=== PATIENT | female | born 1960 | race Caucasian/White ===

== ENCOUNTER → 2016-07-03 | Outpatient (CLI) | payer BC ==
[~2016-07-03] MED LIST: ACET-1256 PO; CALC600T9 PO; CINN500T PO; ESTR1.252 PO; FEXO1TAB49 PO; HYDR-5688 PO; MULT-506 PO; NAPR1TAB9 PO; OMEG10007 PO; PSEU30TA20 PO; TURM500T PO
== END | disposition home or self-care (01) ==
LOC: C.PAPS 08:34
PROVIDERS: ATTEND Obstetrics & Gynecology
DX: Z01.419 Encounter for gynecological examination (general) (routine) without abnormal findings (principal)

== ENCOUNTER → 2016-12-09 | Outpatient (CLI) | payer BC | END | disposition home or self-care (01) | LOC: C.LAB1850 09:12 | PROVIDERS: ATTEND Internal Medicine | DX: Z00.00 Encounter for general adult medical examination without abnormal findings (principal); Z11.59 Encounter for screening for other viral diseases ==

== ENCOUNTER → 2016-12-12 | Outpatient (CLI) | payer BC ==
--- NOTE | 2016-12-12 12:39 | DIAGNOSTIC IMAGING REPORT ---
LEFT SHOULDER ULTRASOUND CLINICAL HISTORY: Left shoulder lipoma. COMPARISON STUDY: MRI of the left shoulder February 08, 2013. FINDINGS: Note is made of a 6 x 4.3 x 1 cm isoechoic slightly lobulated lesion within the subcutaneous tissues of the left shoulder. This reflects the palpable abnormality and favors a lipoma. IMPRESSION: 6 x 4.3 x 1 cm subcutaneous lesion of the left shoulder which is isoechoic to adjacent fat. This suggests a lipoma. Electronically signed by: Kang Marques M.D. 12/12/2016 12:37 PM Dictated Date/Time: 12/12/2016 12:36 PM
== END | disposition home or self-care (01) ==
LOC: C.ULTR 11:52
PROVIDERS: ATTEND Internal Medicine
DX: D17.9 Benign lipomatous neoplasm, unspecified (principal)

== ENCOUNTER → 2017-01-27 | Outpatient (CLI) | payer BC ==
[2017-01-27 19:06] LABS: BASO % 0.7 %; BASO ABS # 0.03 K/uL (0-0.2); COMPLETE YES; EOS % 2.2 %; HEMATOCRIT 39.3 % (37-47); IG% 0.2 %; LYMPH % 34.6 %; LYMPH ABS # 1.59 K/uL (1.2-3.4); MEAN CELL VOLUME 89.3 fL (80-100); MEAN CORPUSCULAR HEMOGLOBIN 30.7 pg (25-34); MEAN CORPUSCULAR HGB CONC 34.4 g/dl (32-36); MEAN PLATELET VOLUME 11.6 fL (7.4-10.4); NEUT % 55.3 %; PLATELET COUNT 178 K/uL (130-400); WHITE BLOOD COUNT 4.59 K/uL (4.8-10.8)
[2017-01-27 19:35] LABS: BLOOD UREA NITROGEN 11 mg/dl (7-18); BUN/CREATININE RATIO 14.2 (10-20); CALCIUM 9.1 mg/dl (8.5-10.1); CARBON DIOXIDE 31 mmol/L (21-32); CHLORIDE 104 mmol/L (98-107); CREATININE 0.76 mg/dl (0.60-1.20); GLUCOSE 73 mg/dl (70-99); POTASSIUM 3.6 mmol/L (3.5-5.1); SODIUM 138 mmol/L (136-145)
== END | disposition home or self-care (01) ==
LOC: C.CPL 17:46
PROVIDERS: ATTEND Surgery
DX: D17.9 Benign lipomatous neoplasm, unspecified (principal)

== ENCOUNTER → 2017-02-06 | Day surgery (SDC) | payer BC ==
[2017-01-20 11:55] VITALS: Ht 174 cm; Wt 73.2 kg
[~2017-02-06] VITALS: Ht 174 cm; Wt 73.2 kg
[~2017-02-06] MED LIST changes: +ATROPINE SULFATE 0.1 MG/ML 5ML SYR IV PRN; +CEFAZOLIN 2000 MG/60 ML D5W IV SCH; +DEXAMETHASONE SOD INJ 4 MG/ML VIAL IV PRN; +DEXAMETHASONE SOD INJ 4 MG/ML VIAL ONE; +EpHEDrine SULFATE INJ 50 MG/ML AMP IV PRN; +FENTANYL CITRATE INJ 50 MCG/1 ML 2 ML VIAL IV PRN; +FENTANYL CITRATE INJ 50 MCG/1 ML 2 ML VIAL ONE; +HYDROCODONE/ACETAMOPHEN 5/325MG TAB PO PRN; +KETOROLAC TROMETHAMINE 30 MG/ML VIAL IV. PRN; +LABETALOL HCL IV 5 MG/ML 20ML IV PRN; +LIDOCAINE HCL 1% 20 ML VIAL ONE; +LIDOCAINE HCL 2% 2 ML VIAL (20MG/ML) ONE; +METOCLOPRAMIDE HCL INJ 5 MG/ML 2 ML VIAL IV PRN; +MIDAZOLAM HCL 1 MG/ML 2ML VIAL ONE; +MoRPHine SULFATE 10 MG/ML CARP/VIAL IV PRN; +ONDANSETRON INJ 2 MG/ML 2 ML VIAL IV PRN; +ONDANSETRON INJ 2 MG/ML 2 ML VIAL ONE; +PHENYLEPHRINE 100MCG/ML 5ML SYR IV PRN; +PROPOFOL IV EMULSION 10 MG/ML 20 ML VIAL IV ONE; +SODIUM CHLORIDE 0.9% 1000ML 1,000 ML IV SCH
[2017-02-06] MEDS: LACTATED RINGER'S 1000ML 1,000 ML IV SCH ×2 (07:37→09:48)
--- NOTE | 2017-02-06 08:38 | History & Physical Bridge - [place] ---
H&P Re-Evaluation Bridge Note: I have examined the patient, reviewed the History & Physical and in the interval since the performance of the History & Physical I have noted the following changes of clinical significance: No changes noted
[2017-02-06] MEDS: BUPIVACAINE 0.5 % 5 MG/1 ML MPF 30ML VIAL ONE ×2 (09:00→09:14)
--- NOTE | 2017-02-06 09:25 | [facility] Operative Report ---
Operative Report Operative Date Feb 06, 2017. Pre-Operative Diagnosis Left Shoulder Mass Post-Operative Diagnosis Same Procedure(s) Performed Left Shoulder Excision Of Mass Surgeon Dr. Yvonne Mcadams MD Pharmacy Intern Surgeon(s) Franklin Garcia PA-C Estimated Blood Loss 5 CC Findings 7x6 cm lipoma Specimens A. Left Shoulder Lipoma Anesthesia gen/ LMA Complication(s) None Disposition Recovery Room / PACU I attest to the content of the Intraoperative Record and any orders documented therein. Any exceptions are noted below.
--- NOTE | 2017-02-06 09:28 | Discharge Instructions-SurgCtr ---
Discharge Instructions Date of Service Feb 06, 2017. Visit Reason for Visit: Left Shoulder Mass Discharge Discharge Diagnosis / Problem: lipoma Discharge Goals Goal(s): Decrease discomfort, Improve function, Improve disease control Medications Stopped Medications Name(s): Fish oil stopped a week ago. Stopped taking Aleve and Naprosen a week ago too. Activity Recommendations Activity Limitations: as noted below Lifting Limitations: no more than 10 pounds (Lt arm) Exercise/Sports Limitations: until after follow-up appointment May Resume Sexual Activity: when tolerated Shower/Bathe: tomorrow Driving or Machine Use: resume 3 days after discharge SPECIAL CARE INSTRUCTIONS: * Cover incisions and change daily for comfort/drainage. * May use ibuprofen for pain as tolerated. * Expect some swelling and bruising. Call your doctor if: * Temperature above 101 degrees * Pain not relieved by pain medicine ordered * There is increased drainage or redness from any incision * You have any unanswered questions or concerns [phone]. FOLLOW UP VISIT: If not already scheduled, please call the office for a follow-up visit. for next week- wound check OFFICE PHONE NUMBER: Dr. Mcadams Office Anesthesia . Post Anesthesia Instructions: If you have had General Anesthesia or IV Sedation: * Do not drive today. * Resume driving when surgeon permits. * Do not make important decisions or sign legal documents today. * Call surgeon for: 1. Temperature elevations greater than 101 degrees F. 2. Uncontrollable pain. 3. Excessive bleeding. 4. Persistent nausea and vomiting. 5. Medication intolerance (nausea, vomiting or rash). * For nausea and vomiting use only clear liquids such as: tea, soda, bouillon until nausea subsides, then gradually increase diet as tolerated. * If you have any concerns or questions, call your surgeon's office. If physician is unavailable and it is an emergency, call 911 or go to the nearest emergency room. . Diet Recommendations Home Diet: resume previous diet Procedures Procedures Performed: Left Shoulder Excision Of Mass Pending Studies Studies pending at discharge: no Medical Emergencies . Who to Call and When: Medical Emergencies: If at any time you feel your situation is an emergency, please call 911 immediately. . Non-Emergent Contact Non-Emergency issues call your: Primary Care Provider, Surgeon . . "Provider Documentation" section prepared by Bj Mcadams. .
--- NOTE | 2017-02-06 09:42 | OPERATIVE REPORT ---
DATE OF OPERATION: 02/06/2017 PREOPERATIVE DIAGNOSIS: Left shoulder lipoma. POSTOPERATIVE DIAGNOSIS: Same. NAME OF OPERATION: Excision of 7 x 6 cm left shoulder lipoma. STAFF SURGEON: Dr. Mcadams. ANESTHESIA: General LMA. EMERGENCY VEHICLE OPERATOR: Maura Garcia PA-C. PROCEDURE: The patient was brought in the operating room and placed on the operating table in supine position. Her left shoulder was prepped and draped in usual fashion. Incision was made over the lipoma which posteriorly had been previously excised with scar tissue present. Dissection was carried down in the subcutaneous tissue, identifying the lipoma. Some of the lipomatous tissue was easily dissected from surrounding tissue. Other tissue was more dense. It was dissected down to the fascia circumferentially and removed, it was 7 x 6 cm. The deep tissue was reapproximated using 2-0 chromic catgut suture then the skin reapproximated using 5-0 Prolene suture. Dressing applied and patient transferred to recovery room in stable condition. I attest to the content of the Intraoperative Record and any orders documented therein. Any exception s are noted below.
--- NOTE | 2017-02-06 10:37 | Anesthesia Progress Nt - [facility] ---
Anesthesia Post Op Note Date & Time Feb 06, 2017 at 10:37 Vital Signs Pain Intensity: 0 Vital Signs Past 12 Hours Date Time Temp Pulse Resp B/P (MAP) Pulse Ox O2 Delivery O2 Flow Rate FiO2 02/06/17 10:20 36.1 64 16 127/83 (98) 97 Room Air 02/06/17 10:12 66 11 02/06/17 10:12 65 11 99 02/06/17 10:11 118/80 02/06/17 10:10 74 11 02/06/17 10:10 36.4 68 13 118/80 99 Room Air 02/06/17 10:10 74 11 98 02/06/17 10:06 116/72 02/06/17 10:05 62 14 99 02/06/17 10:05 62 14 02/06/17 10:01 115/75 02/06/17 10:00 66 12 02/06/17 10:00 67 12 100 02/06/17 09:56 120/70 02/06/17 09:55 62 13 02/06/17 09:55 63 13 100 02/06/17 09:51 115/70 02/06/17 09:50 62 13 02/06/17 09:50 62 13 100 02/06/17 09:46 117/71 02/06/17 09:45 64 13 100 02/06/17 09:45 64 13 02/06/17 09:41 116/74 02/06/17 09:40 60 11 02/06/17 09:40 60 11 100 02/06/17 09:36 117/72 02/06/17 09:35 36.2 65 12 117/72 100 Mask 9 02/06/17 09:35 65 02/06/17 09:35 65 100 02/06/17 07:16 36.6 78 18 147/90 (109) 98 Room Air Notes Mental Status: alert / awake / arousable, participated in evaluation Pt Amnestic to Procedure: Yes Nausea / Vomiting: adequately controlled Pain: adequately controlled Airway Patency, RR, SpO2: stable & adequate BP & HR: stable & adequate Hydration State: stable & adequate Anesthetic Complications: no major complications apparent
[2017-02-06 10:39] VITALS: BP 143/88; PULSE 58; TEMP 36.2; O2SAT 100
== END | disposition home or self-care (01) ==
LOC: X.SURG 07:00
PROVIDERS: ATTEND Surgery
DX: D17.22 Benign lipomatous neoplasm of skin and subcutaneous tissue of left arm (principal); K90.0 Celiac disease; E78.5 Hyperlipidemia, unspecified; D50.9 Iron deficiency anemia, unspecified; M25.50 Pain in unspecified joint; Z79.899 Other long term (current) drug therapy

== ENCOUNTER → 2017-05-05 | Outpatient (CLI) | payer BC ==
[~2017-05-05] MED LIST changes: -ATROPINE SULFATE 0.1 MG/ML 5ML SYR IV PRN; -CEFAZOLIN 2000 MG/60 ML D5W IV SCH; -DEXAMETHASONE SOD INJ 4 MG/ML VIAL IV PRN; -DEXAMETHASONE SOD INJ 4 MG/ML VIAL ONE; -EpHEDrine SULFATE INJ 50 MG/ML AMP IV PRN; -FENTANYL CITRATE INJ 50 MCG/1 ML 2 ML VIAL IV PRN; -FENTANYL CITRATE INJ 50 MCG/1 ML 2 ML VIAL ONE; -HYDROCODONE/ACETAMOPHEN 5/325MG TAB PO PRN; -KETOROLAC TROMETHAMINE 30 MG/ML VIAL IV. PRN; -LABETALOL HCL IV 5 MG/ML 20ML IV PRN; -LIDOCAINE HCL 1% 20 ML VIAL ONE; -LIDOCAINE HCL 2% 2 ML VIAL (20MG/ML) ONE; -METOCLOPRAMIDE HCL INJ 5 MG/ML 2 ML VIAL IV PRN; -MIDAZOLAM HCL 1 MG/ML 2ML VIAL ONE; -MoRPHine SULFATE 10 MG/ML CARP/VIAL IV PRN; +NAPR250T3 PO; -ONDANSETRON INJ 2 MG/ML 2 ML VIAL IV PRN; -ONDANSETRON INJ 2 MG/ML 2 ML VIAL ONE; -PHENYLEPHRINE 100MCG/ML 5ML SYR IV PRN; -PROPOFOL IV EMULSION 10 MG/ML 20 ML VIAL IV ONE; -SODIUM CHLORIDE 0.9% 1000ML 1,000 ML IV SCH
--- NOTE | 2017-05-06 14:11 | MAMMOGRAPHY REPORT ---
BILATERAL DIGITAL SCREENING MAMMOGRAM TOMOSYNTHESIS WITH CAD: 05/05/2017 CLINICAL HISTORY: Routine screening. Patient has no complaints. TECHNIQUE: Breast tomosynthesis in addition to standard 2D mammography was performed. Current study was also evaluated with a Computer Aided Detection (CAD) system. COMPARISON: Comparison is made to exams dated: 05/02/2016 mammogram, 05/01/2015 mammogram, 4 mammogram, 04/25/2013 mammogram, 04/23/2012 mammogram, and 04/18/2011 mammogram - [facility]. BREAST COMPOSITION: There are scattered areas of fibroglandular density in both breasts. FINDINGS: The parenchymal pattern is unchanged. No developing mass, architectural distortion or clus ter of suspicious microcalcifications is seen in either breast. IMPRESSION: ACR BI-RADS CATEGORY 2: BENIGN There is no mammographic evidence of malignancy. A 1 year screening mammogram is recommended. The pa tient will receive written notification of the results. Approximately 10% of breast cancers are not detected with mammography. A negative mammographic report should not delay biopsy if a clinically suggestive mass is present. Una Torres M.D. ay/:05/05/2017 16:47:24 Grape Picker: Luciana SCHMIDT(Odilia)(M), [facility] letter sent: Normal 1/2 BI-RADS Code: ACR BI-RADS Category 2: Benign
== END | disposition home or self-care (01) ==
LOC: C.MAMM 09:13
PROVIDERS: ATTEND Obstetrics & Gynecology
DX: Z12.31 Encounter for screening mammogram for malignant neoplasm of breast (principal)

== ENCOUNTER 2017-06-24 07:00 | Emergency (ER) | payer BC, OTHER ==
[~2017-06-24] VITALS: Ht 175.3 cm; Wt 74.1 kg
[~2017-06-24 07:00] MED LIST changes: -NAPR250T3 PO
[2017-06-24 07:02] VITALS: TEMP 36.7; Ht 175.3 cm; Wt 74.1 kg
--- NOTE | 2017-06-24 07:28 | EMERGENCY ROOM VISIT NOTE ---
History Report prepared by Tamicaibthomas: Inez Sosa Under the Supervision of: Dr. Steven Martinez M.D. First contact with patient: 07:07 Chief Complaint: FALL Stated Complaint: FALL DOWN STAIRS-BACK OF HEAD History of Present Illness The patient is a 57 year old white female with a past medical history of Celiac disease and shoulder repair surgery who presents to the ED with a cc of an episode of a fall occurring an hour ago. Positive hitting her head, elbow, and back. Negative LOC, numbness, or weakness. The pt was taking laundry down the stairs when she slipped and fell down about 12 stairs. The pt is not on any blood thinners. The pt is unsure if her tetanus shot is up to date. Source of History: patient Onset: an hour ago Position: other (generalized) Quality: other (fall) Timing: other (episode) Associated Symptoms: No LOC, No weakness, No numbness Review of Systems See HPI for pertinent positives and negatives. A total of ten systems were reviewed and were otherwise negative. Past Medical & Surgical Medical Problems: (1) Celiac disease Family History Patient reports no known family medical history. Social History Smoking Status: Never Smoker Marital Status: Housing Status: lives with significant other Current/Historical Medications Scheduled Calcium Carbonate-Vitamin D (Calcium + D), 1 TAB PO QAM Cinnamon (Cinnamon), 1,000 MG PO BID Estrogens, Conjugated (Premarin), 1.25 MG PO QAM Fish Oil ([place]-3), 1 CAP PO QAM Multivitamin (Multivitamin), 1 TAB PO LUNCH Turmeric (Curcuma Longa) (Turmeric), 1 TAB PO LUNCH Scheduled PRN Acetaminophen (Tylenol), 1-2 TABS PO Q6H PRN for Pain Fexofenadine Hcl (Gricelda Allergy), 1 TAB PO DAILY PRN for ALLERGIES Naproxen Tab (Naprosyn), 250 MG PO Q6 PRN for Pain Pseudoephedrine (Sudafed), 30 MG PO UD PRN for ALLERGIES Allergies Coded Allergies: [place] (Verified Allergy, Unknown, ?, 06/24/17) Cat Dander (Verified Allergy, Unknown, ?, 06/24/17) Dog Dander (Verified Allergy, Unknown, ?, 06/24/17) Dust (Verified Allergy, Unknown, ?, 06/24/17) Molds and Smuts (Verified Allergy, Unknown, ?, 06/24/17) POLLEN (Verified Allergy, Unknown, ?, 06/24/17) Sulfamethoxazole w/Trimethoprim (Verified Allergy, Unknown, "SPOTS ON MY HANDS", 06/24/17) Physical Exam Vital Signs Date Time Temp Pulse Resp B/P (MAP) Pulse Ox O2 Delivery O2 Flow Rate FiO2 06/24/17 07:02 36.7 85 18 167/96 98 Room Air Physical Exam GENERAL: Awake, alert, well-appearing, NAD HENT: Normocephalic. Contusion and abrasion occiput, hemostatic. EYES: Normal conjunctiva. Sclera non-icteric. NECK: Supple. No nuchal rigidity. FROM. RESPIRATORY: CTAB, no rhonchi, wheezing, crackles CARDIAC: RRR, no MRG ABDOMEN: Soft, NTND, BS+ MSK: No chest wall TTP, no LE edema. No midline or C-spine TTP. NEURO: CN 2-12 intact, 5/5 upper and lower extremity strength, no dysmetria, no drift, good finger to nose, no sensory deficits. SKIN: No rash or jaundice noted. Medical Decision & Procedures ER Provider Diagnostic Interpretation: Radiology results as stated below per my review and radiologist interpretation: HEAD WITHOUT CONTRAST (CT) FINDINGS: Solid Waste Landfill Technician topogram: Unremarkable. Crowding of the foramen magnum possibly tonsillar ectopia. Ventricles and sulci otherwise normal in size. Brain parenchyma normal in appearance with preserved hdez-white differentiation. No mass effect or midline shift. No hemorrhage or acute territorial infarct. No extra-axial fluid collection. Paranasal sinuses and mastoid air cells clear. Calvarium intact. Minimal irregularity of the cutis with subjacent infiltration in the region of the occiput. IMPRESSION: 1. No acute intracranial abnormality. 2. Minimal superficial laceration and contusion of the subcutaneous tissues overlying the occiput. Electronically signed by: Danny Gunter M.D. Medications Administered Medications (Trade) Dose Ordered Sig/Mana Route Start Time Stop Time Status Last Admin Dose Admin Diphtheria/ Pertussis/Tetanus Vacc (Adacel Inj) 0.5 ml ONCE ONCE IM. 06/24/17 07:30 06/24/17 07:31 DC 06/24/17 07:24 0.5 ML ED Course 07: The patient was evaluated in room B3B. A complete history and physical exam was performed. 0814: I updated the patient on her test results. She is resting comfortably. 0824: I reevaluated the patient. Discussed results and discharge instructions: She verbalized understanding and agreement. The patient is ready for discharge. Medical Decision The patient is a 57 year old white female with a past medical history of Celiacs disease, shoulder repair surgery who presents to the ED with a cc of an episode of a fall occurring an hour ago. Differential diagnoses include: contusion, abrasion, fracture, ICH. Patient was seen and evaluated the bedside. Patient did suffer a fall down a flight of stairs at approximately 6 AM. Patient states she thinks she believes she tripped. Denies any LOC. No blood thinners. Patient does have a small hematoma and abrasion to the occiput. It is hemostatic. It does not require marianela. Patient is unsure as to her last known tetanus. We did discuss CT scans and elected to obtain one. Patient also received a tetanus. Patient has a nonfocal neurologic exam denied any pain and did not want any pain medication at this time. Patient has no midline C-spine tenderness and thus is Nexus negative and does not require a C-spine CT. patient CT brain negative. Patient' s wounds were cleansed and an Krunal wrap was applied. Patient was given return precautions. Patient was agreeable to plan of care and all questions were answered. Patient was given strict follow-up, discharge, and return precautions. All questions were answered. Patient was deemed suitable for outpatient follow-up at this time. Patient agreed with the plan of care and was safely discharged home. The chart was completed utilizing [employer] Speech voice recognition software. Grammatical errors, random word insertions, pronoun errors, and incomplete sentences are an occasional consequence of this system due to software limitations, ambient noise, and hardware issues. Any formal questions or concerns about the content, text, or information contained within the body of this dictation should be directly addressed to the physician for clarification. Medication Reconcilliation Current Medication List: was personally reviewed by me Blood Pressure Screening Patient's blood pressure: Elevated blood pressure Blood pressure disposition: Referred to PCP Impression Primary Impression: Fall Additional Impression: Contusion of occipital region of scalp Scribe Attestation The scribe's documentation has been prepared under my direction and personally reviewed by me in its entirety. I confirm that the note above accurately reflects all work, treatment, procedures, and medical decision making performed by me. Departure Information Dispostion Home / Self-Care Referrals RV. Dave MD (PCP) Forms HOME CARE DOCUMENTATION FORM, IMPORTANT VISIT INFORMATION Patient Instructions Bruises Contusions, ED Mechanical Fall, ED RICE, My [facility] Additional Instructions Please return to the emergency department if you have worsening or recurrent symptoms not amenable to at-home treatment. Please call for a follow-up appointment with her primary care physician. Please take your medications as prescribed. If you have other concerns and/or complaints please feel free to also call your primary care physician's office or return the ED for further evaluation, management, and treatment. You were found to have an elevated blood pressure today (>120 sytolic or >90 diastolic). Per medicare guidelines, you need to follow up with this blood pressure screening with your Primary Care Physician (PCP). For a new PCP call [phone]. You may take 400 mg Ibuprofen every 12 hours as needed for pain with food for no more than 2 consecutive days. You may take tylenol 650 mg every 6 hours as needed for pain. You may take motrin and tylenol separately or at the same time. Take your medications as prescribed. You have been examined and treated today on an emergency basis only. This is not a substitute for, or an effort to provide, complete comprehensive medical care. It is impossible to recognize and treat all injuries or illnesses in a single emergency department visit. It is therefore important that you follow up closely with [facility], your PCP, and/or your specialist(s). Call as soon as possible for an appointment. Thank you for your time and consideration. I look forward to speaking with you again soon. Please don't hesitate to call us if you have any questions. Problem Qualifiers Primary Impression: Fall Encounter type: initial encounter Qualified Codes: W19.XXXA - Unspecified fall, initial encounter Additional Impression: Contusion of occipital region of scalp Encounter type: initial encounter Qualified Codes: S00.03XA - Contusion of scalp, initial encounter
[2017-06-24] MEDS ORDERED: NAPR250T3 PO (07:29)
[2017-06-24] MEDS ORDERED: DIPHTHERIA/TETANUS/PERTUSSIS 0.5 ML SYR/VIAL IM. ONE (07:30)
--- NOTE | 2017-06-24 07:49 | DIAGNOSTIC IMAGING REPORT ---
HEAD WITHOUT CONTRAST (CT) CLINICAL HISTORY: 57 years-old Female presenting with fall down set of stairs, struck occiput, abrasion, hematoma. TECHNIQUE: Multidetector CT imaging of the head was performed without the use of intravenous contrast. IV contrast: None. A dose lowering technique was used consistent with the principles of ALARA (as low as reasonably achievable). COMPARISON: None. CT DOSE (mGy.cm): The estimated cumulative dose is 537.48 mGy.cm. FINDINGS: Legal Investigator topogram: Unremarkable. Crowding of the foramen magnum possibly tonsillar ectopia. Ventricles and sulci otherwise normal in size. Brain parenchyma normal in appearance with preserved hdez-white differentiation. No mass effect or midline shift. No hemorrhage or acute territorial infarct. No extra-axial fluid collection. Paranasal sinuses and mastoid air cells clear. Calvarium intact. Minimal irregularity of the cutis with subjacent infiltration in the region of the occiput. IMPRESSION: 1. No acute intracranial abnormality. 2. Minimal superficial laceration and contusion of the subcutaneous tissues overlying the occiput. Electronically signed by: Danny Gunter M.D. 06/24/2017 7:48 AM Dictated Date/Time: 06/24/2017 7:44 AM
[2017-06-24 08:26] VITALS: BP 168/93; PULSE 82; O2SAT 94
== END 2017-06-24 08:27 | disposition home or self-care (01) ==
LOC: C.EDB 07:01
DX: S00.03XA Contusion of scalp, initial encounter (principal); S00.83XA Contusion of other part of head, initial encounter; W10.9XXA Fall (on) (from) unspecified stairs and steps, initial encounter; Y93.E2 Activity, laundry; Z91.048 Other nonmedicinal substance allergy status

== ENCOUNTER → 2017-07-22 | Outpatient (CLI) | payer OTHER ==
[~2017-07-22] MED LIST changes: -HYDR-5688 PO; -NAPR1TAB9 PO; +NAPR250T3 PO
[2017-07-22 12:12] LABS: BASO % 0.5 %; BASO ABS # 0.02 K/uL (0-0.2); EOS ABS # 0.04 K/uL (0-0.5); HEMATOCRIT 40.6 % (37-47); HEMOGLOBIN 13.8 g/dL (12.0-16.0); LYMPH % 25.3 %; LYMPH ABS # 1.02 K/uL (1.2-3.4); MEAN CELL VOLUME 88.8 fL (80-100); MEAN CORPUSCULAR HEMOGLOBIN 30.2 pg (25-34); MEAN PLATELET VOLUME 11.3 fL (7.4-10.4); MONO % 8.9 %; MONO ABS # 0.36 K/uL (0.11-0.59); NEUT % 64.3 %; NEUT ABS # 2.59 K/uL (1.4-6.5); PLATELET COUNT 169 K/uL (130-400); RED CELL DISTRIBUTION WIDTH SD 42.3 fL (36.4-46.3); WHITE BLOOD COUNT 4.03 K/uL (4.8-10.8)
[2017-07-22 12:44] LABS: ALBUMIN 3.7 gm/dl (3.4-5.0); ALT/SGPT 31 U/L (12-78); AST/SGOT 22 U/L (15-37); BLOOD UREA NITROGEN 12 mg/dl (7-18); CALCIUM 9.6 mg/dl (8.5-10.1); CARBON DIOXIDE 29 mmol/L (21-32); GLUCOSE 78 mg/dl (70-99); POTASSIUM 3.7 mmol/L (3.5-5.1); SODIUM 138 mmol/L (136-145)
[2017-07-22 12:55] LABS: ALKALINE PHOSPHATASE 52 U/L (45-117); TOTAL PROTEIN 7.2 gm/dl (6.4-8.2)
== END | disposition home or self-care (01) ==
LOC: C.LAB1850 10:57
PROVIDERS: ATTEND Physician Assistant
DX: R03.0 Elevated blood-pressure reading, without diagnosis of hypertension (principal); Z86.19 Personal history of other infectious and parasitic diseases